=== PATIENT | male | born 1980 | race African-American/Black ===

== ENCOUNTER 2022-03-01 09:01 | Emergency (ER) | payer MEDICAID, OTHER ==
[~2022-03-01] VITALS: Ht 195.6 cm; Wt 108.1 kg
[2022-03-01 11:39] LABS: BASOPHILS % 0.6 % (0.0-2.0); EOSINOPHILS % 0.8 % (0.0-5.0); HEMATOCRIT. 46.3 % (42.0-52.0); HEMOGLOBIN. 15.5 g/dL (14.0-18.0); LYMPHOCYTES % 26.6 % (20.0-50.0); MEAN CORPUSCULAR HEMOGLOBIN 29.1 pg (28.0-32.0); MEAN CORPUSCULAR VOLUME 87.2 fL (80.0-94.0); MEAN PLATELET VOLUME 8.1 fl (7.4-10.4); MONOCYTES % 12.4 % (2.0-8.0); NEUTROPHILS % 59.6 % (40.0-76.0); PLATELET 246 x1000/uL (130-400); RED BLOOD CELL COUNT 5.31 mill/uL (4.7-6.1); RED CELL DISTRIBUTION WIDTH 15.5 % (11.6-14.6)
[2022-03-01 11:46] LABS: CHLORIDE 106 mEq/L (98-107)
[2022-03-01 11:57] LABS: PROTHROMBIN TIME 10.8 sec (9.6-11.0)
[2022-03-01] MEDS ORDERED: SODIUM CHLORIDE 0.9% 1,000 ML IV ONE (12:15)
[2022-03-01] MEDS ORDERED: KETOROLAC 30MG/ML VIAL IV ONE (12:15)
[2022-03-01 12:30] VITALS: BP 129/87
[2022-03-01] MEDS ORDERED: LIDOCAINE HCL 1% 20ML VIAL (Pyxis) INJ INFIL ONE (14:45)
[2022-03-01] MEDS ORDERED: IOHEXOL-300 100 ML BOTTLE ONE (15:12)
[2022-03-01] MEDS ORDERED: CLIN-194 MT ×3 (15:32→18:28)
[2022-03-01] MEDS ORDERED: ACET-2708 MT (15:35)
== END 2022-03-01 15:58 | disposition home or self-care (01) ==
LOC: ER 09:11
DX: K04.7 Periapical abscess without sinus (principal); J45.909 Unspecified asthma, uncomplicated; E11.9 Type 2 diabetes mellitus without complications
CPT/HCPCS: 36415; 70487; 71045; 80053; 85025; 85610; 96361; 96374; 99285; J1885; J7030; Q9967

== ENCOUNTER 2022-06-05 07:16 | Emergency (ER) | payer MEDICAID, OTHER ==
[~2022-06-05] VITALS: Ht 195.6 cm; Wt 109.0 kg
[~2022-06-05 07:16] MED LIST: ACET-2708 MT; CLIN-194 MT
[2022-06-05 07:36] VITALS: BP 138/92
[2022-06-05] MEDS ORDERED: LIDOCAINE HCL/PF 1% 10 MG/ML 5ML VIAL INFIL ONE (08:30)
[2022-06-05] MEDS ORDERED: BACITRACIN ZINC OINT UDPKT TOP ONE (08:30)
[2022-06-05] MEDS ORDERED: IBUP-2029 MT (08:43)
[2022-06-05] MEDS ORDERED: SULF1TAB48 MT (08:43)
[2022-06-05] MEDS ORDERED: SULFAMETHOXAZOLE/TRIMETHOPRIM 400/80MG TAB PO ONE (08:45)
== END 2022-06-05 09:36 | disposition home or self-care (01) ==
LOC: ER 07:16
DX: L02.214 Cutaneous abscess of groin (principal); Z13.9 Encounter for screening, unspecified
CPT/HCPCS: 10060; 99283; J3490; Z7610